=== PATIENT | male | born 1995 | race Caucasian/White ===

== ENCOUNTER 2017-04-26 18:01 | Emergency (ER) | payer SELFPAY ==
[2017-04-26 18:08] VITALS: BP 143/70; PULSE 57; RESP 16; TEMP 97.5; O2SAT 100
--- NOTE | 2017-04-26 19:15 | EDPHY ---
H & P Time Seen by Provider: 04/26/17 18:09 HPI/ROS: CHIEF COMPLAINT: Left wrist laceration HISTORY OF PRESENT ILLNESS: 21-year-old male presents to the emergency department with a laceration to his left wrist. The patient was at work using a knife to open a bag of vegetables and accidentally cut his left wrist. The incident happened just prior to arrival. He is right-hand dominant. He was able to control the bleeding with firm direct pressure. Describes the pain as mild. His tetanus shot is current. ROS: Denies numbness or tingling in his fingers, retained foreign body. Past Medical/Surgical History: Negative Social History: Single Smoking Status: Current every day smoker Physical Exam: On examination patient has a 1.5 cm laceration to the volar aspect of the left wrist. No active bleeding noted. No evidence of tendon injury identified. Full range of motion of his fingers. Normal sensation to light touch with normal 2 point discrimination. No palpable bony tenderness. No other injuries noted. Constitutional: Initial Vital Signs Temperature (C) 36.4 C 04/26/17 18:04 Heart Rate 57 L 04/26/17 18:04 Respiratory Rate 16 04/26/17 18:04 Blood Pressure 143/70 H 04/26/17 18:04 O2 Sat (%) 100 04/26/17 18:04 O2 Delivery Mode Room Air Allergies/Adverse Reactions: No Known Allergies Allergy (Unverified 04/26/17 18:08) Home Medications: Medication Instructions Recorded NK [No Known Home Meds] 04/26/17 MDM/Departure - MDM Procedures: Laceration repair. Verbal consent was obtained from the patient. The 1.5 cm laceration on the left wrist was anesthetized using 1% lidocaine with epinephrine. The wound was irrigated with saline, draped and explored to its base with a gloved finger. There were no deep structures involved. No tendon injury was identified. The wound was repaired with 5 0 Ethilon, 4 sutures. The wound repair was simple. The procedure was performed by myself. ED Course/Re-evaluation: 21-year-old male presents with left wrist laceration. Wound was repaired, see procedure note. His tetanus shot is current. He was given wound care precautions. - Depart Disposition: Home, Routine, Self-Care Clinical Impression: Laceration of left wrist Qualifiers: Encounter type: initial encounter Qualified Code(s): S61.512A - Laceration without foreign body of left wrist, initial encounter Condition: Good Instructions: Care For Your Stitches (ED), Laceration (ED), Acute Wounds (ED) Additional Instructions: Wound Care Follow-Up: Removal of sutures in 10 days. Suture removal is complimentary in uncomplicated cases. Infection or abnormal findings would require reevaluation by the MD. In that case, you may be billed. Ibuprofen 600 mg every 8 hr as needed for pain. Keep wound dry, clean and protected. Return if he notices any signs or symptoms of infection such as redness, swelling, increased pain, fever, purulent drainage. Referrals: Work Comp Ref/Restrictions [Outside] - As per Instructions
== END 2017-04-26 19:00 | disposition home or self-care (01) ==
PROC: 0HQEXZZ Repair Left Lower Arm Skin, External Approach (ICD-10-PCS; principal; 2017-04-26)
DX: S61.512A Laceration without foreign body of left wrist, initial encounter (principal); F17.200 Nicotine dependence, unspecified, uncomplicated; W26.0XXA Contact with knife, initial encounter; Y92.89 Other specified places as the place of occurrence of the external cause; Y99.0 Civilian activity done for income or pay; Y93.89 Activity, other specified